=== PATIENT | female | born 1965 | race Caucasian/White ===

== ENCOUNTER 2018-12-06 16:34 | Emergency (ER) | payer OTHER ==
[2018-12-06] MEDS ORDERED: SODIUM CHLORIDE 0.9% 1,000 ML IV STA ×2 (16:54)
[2018-12-06 17:05] LABS: Basophils # (A) 0.1 k/uL (0-0.2); Basophils % (A) 1 %; Eosinophils # (A) 0.2 k/uL (0-0.7); Eosinophils % (A) 3 %; HCT 45.9 % (34.0-46.0); HGB 15.5 gm/dL (11.4-16.0); Lymphocytes # (A) 3.4 k/uL (1.0-4.8); Lymphocytes % (A) 38 %; MCH 31.7 pg (25.0-35.0); MCHC 33.7 g/dL (31.0-37.0); Mean Platelet Volume 7.9; Monocytes # (A) 0.5 k/uL (0-1.0); Monocytes % (A) 6 %; Neutrophils # (A) 4.3 k/uL (1.3-7.7); Neutrophils % (A) 49 %; Platelet Count 242 k/uL (150-450); RBC 4.88 m/uL (3.80-5.40); RDW 13.9 % (11.5-15.5); WBC 8.8 k/uL (3.8-10.6)
[2018-12-06 17:07] LABS: Glucose,Whole Blood 132 mg/dL (75-99)
[2018-12-06 17:09] LABS: ALT 28 U/L (9-52); AST 20 U/L (14-36); Albumin 4.1 g/dL (3.5-5.0); Alcohol <10 mg/dL; Alkaline Phosphatase 71 U/L (38-126); Amylase 36 U/L (30-110); Anion Gap 10 mmol/L; Blood Urea Nitrogen 13 mg/dL (7-17); Calcium 9.6 mg/dL (8.4-10.2); Carbon Dioxide 20 mmol/L (22-30); Chloride 108 mmol/L (98-107); Glucose 134 mg/dL (74-99); Lipase 68 U/L (23-300); Potassium 3.5 mmol/L (3.5-5.1); Sodium 138 mmol/L (137-145); Total Bilirubin 0.8 mg/dL (0.2-1.3); Total Protein 6.4 g/dL (6.3-8.2)
[2018-12-06 17:18] LABS: INR 0.9 (<1.2); Partial Thromboplastin Time 20.1 sec (22.0-30.0); Prothrombin Time 9.6 sec (9.0-12.0)
[2018-12-06 17:23] LABS: Creatine Kinase 150 U/L (30-135)
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
[2018-12-06] MEDS ORDERED: ONDANSETRON 4 MG/2 ML VIAL IVP STA (17:29)
[2018-12-06 17:35] LABS: Troponin I <0.012 ng/mL (0.000-0.034)
--- NOTE | 2018-12-06 17:46 | XR ---
EXAMINATION TYPE: XR chest 1V portable DATE OF EXAM: 12/06/2018 COMPARISON: NONE HISTORY: Left shoulder pain TECHNIQUE: Single frontal view of the chest is obtained. FINDINGS: Single view IMPRESSION: There is no heart failure nor confluent pneumonic infiltrate. Costophrenic angles are cl ear. Bony thorax appears intact. IMPRESSION: No active cardiopulmonary disease. Normal heart.
--- NOTE | 2018-12-06 17:48 | XR ---
EXAMINATION TYPE: XR pelvis AP view DATE OF EXAM: 12/06/2018 COMPARISON: NONE HISTORY: Shoulder pain TECHNIQUE: Single view FINDINGS: Pelvic ring is intact. Proximal femurs and hip joints are intact. There are phleboliths in the pelvis. Sacroiliac joints appear normal. IMPRESSION: Negative pelvis x-ray exam. No fracture.
--- NOTE | 2018-12-06 17:49 | XR ---
EXAMINATION TYPE: XR humerus LT DATE OF EXAM: 12/06/2018 COMPARISON: NONE HISTORY: Arm pain TECHNIQUE: 3 views FINDINGS: I see no fracture nor dislocation. Elbow joint and shoulder joint appear intact. IMPRESSION: Negative left humerus exam.
--- NOTE | 2018-12-06 17:50 | XR ---
EXAMINATION TYPE: XR shoulder limited LT DATE OF EXAM: 12/06/2018 COMPARISON: NONE HISTORY: Shoulder pain TECHNIQUE: Single view FINDINGS: I see no fracture nor dislocation. Glenohumeral joint appears anatomic. IMPRESSION: Negative left shoulder exam. Limited exam.
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
[2018-12-06 19:19] VITALS: BP 118/78; PULSE 71; RESP 18; TEMP 98.6
== END 2018-12-06 19:11 | disposition home or self-care (01) ==
LOC: EC 16:34
DX: S39.012A Strain of muscle, fascia and tendon of lower back, initial encounter (principal); S40.022A Contusion of left upper arm, initial encounter; R11.2 Nausea with vomiting, unspecified; R51 Headache; M25.552 Pain in left hip; E86.0 Dehydration; V43.53XA Car driver injured in collision with pick-up truck in traffic accident, initial encounter; Y92.410 Unspecified street and highway as the place of occurrence of the external cause
CPT/HCPCS: 36415; 86900; 86901; 80053; 82150; 82550; 82553; 83605; 83690; 84484; 85025; 85610; 85730; 86850; 80320; 72170; 73020; 73060; 71045; 72125; 70450; 71260; 74177; 99284; 96374; 96361 ×2; J2405; Q9967; 99285

== ENCOUNTER 2021-03-02 17:07 | Emergency (ER) | payer BC, OTHER ==
[2021-03-02] MEDS ORDERED: KETOROLAC 15 MG/ML 1 ML VIAL IVP STA (18:27)
[2021-03-02 18:45] LABS: Basophils # (A) 0.1 k/uL (0-0.2); Basophils % (A) 1 %; Eosinophils # (A) 0.2 k/uL (0-0.7); Eosinophils % (A) 3 %; HCT 45.5 % (34.0-46.0); HGB 14.8 gm/dL (11.4-16.0); Lymphocytes % (A) 24 %; MCH 30.2 pg (25.0-35.0); MCHC 32.5 g/dL (31.0-37.0); Mean Platelet Volume 8.5; Monocytes # (A) 0.3 k/uL (0-1.0); Monocytes % (A) 4 %; Neutrophils # (A) 5.6 k/uL (1.3-7.7); Neutrophils % (A) 67 %; Platelet Count 209 k/uL (150-450); RBC 4.89 m/uL (3.80-5.40); RDW 14.1 % (11.5-15.5); WBC 8.4 k/uL (3.8-10.6)
[2021-03-02 18:52] LABS: ALT 16 U/L (4-34); AST 23 U/L (14-36); African American GFR (CKD) >90 (>60 ml/min/1.73 sqM); Alkaline Phosphatase 72 U/L (38-126); Anion Gap 5 mmol/L; Blood Urea Nitrogen 13 mg/dL (7-17); Calcium 9.6 mg/dL (8.4-10.2); Carbon Dioxide 28 mmol/L (22-30); Chloride 109 mmol/L (98-107); Glucose 100 mg/dL (74-99); Non-African American GFR(CKD) >90 (>60 ml/min/1.73 sqM); Potassium 3.9 mmol/L (3.5-5.1); Sodium 142 mmol/L (137-145); Total Bilirubin 0.4 mg/dL (0.2-1.3); Total Protein 6.3 g/dL (6.3-8.2)
[2021-03-02 19:06] LABS: Appearance,Urine Turbid (Clear); Bacteria,Urine Rare /hpf; Bilirubin,Urine Negative (Negative); Blood,Urine Moderate (Negative); Color,Urine Yellow; Glucose,Urine (UA) Negative (Negative); Ketones,Urine Negative (Negative); Leukocyte Esterase,Urine Large (Negative); Mucus,Urine Occasional /hpf; Nitrite,Urine Negative (Negative); PH, Urine 5.5 (5.0-8.0); Protein,Urine 1+ (Negative); RBC,Urine 35 /hpf (0-5); Specific Gravity,Urine 1.023 (1.001-1.035); Squamous Epithelial Cell,Urine 1 /hpf (0-4); Urobilinogen,Urine <2.0 mg/dL (<2.0); WBC,Urine >182 /hpf (0-5)
--- NOTE | 2021-03-02 19:12 | ED ---
General Adult HPI - General Source: patient, RN notes reviewed Mode of arrival: ambulatory Limitations: no limitations <Gil Sheth - Last Filed: 03/02/21 19:15> <Liz Wells - Last Filed: 03/02/21 23:24> - General Chief complaint: Urogenital Stated complaint: Abd Pain Time Seen by Provider: 03/02/21 17:40 - History of Present Illness Initial comments: 55-year-old female presents to the emergency room for discharge. Patient reports she thought she was having bladder leakage over the past month but it has become a thick white foul-smelling discharge. Patient is not sure if she is having vaginal or urethral discharge. Patient has some minimal pelvic discomfort but denies any significant pain. Denies fevers or chills. Patient denies any sexual activity for the past 4 years. Patient has no other complaints at this time including shortness of breath, chest pain, abdominal pain, nausea or vomiting, headache, or visual changes. (Gil Sheth) - Related Data Home Medications Medication Instructions Recorded Confirmed Zantrex 2 cap PO BID 12/06/18 12/06/18 Previous Rx's Medication Instructions Recorded Cephalexin [Keflex] 500 mg PO Q6HR 10 Days #40 cap 03/02/21 metroNIDAZOLE [Flagyl] 500 mg PO BID #14 tab 03/02/21 Allergies Allergy/AdvReac Type Severity Reaction Status Date / Time No Known Allergies Allergy Verified 12/06/18 17:30 Review of Systems ROS Other: All systems not noted in ROS Statement are negative. <Gil Sheth - Last Filed: 03/02/21 19:15> ROS Other: All systems not noted in ROS Statement are negative. <Liz Wells - Last Filed: 03/02/21 23:24> ROS Statement: Those systems with pertinent positive or pertinent negative responses have been documented in the HPI. Past Medical History Past Medical History: No Reported History History of Any Multi-Drug Resistant Organisms: None Reported Past Surgical History: Section Past Psychological History: No Psychological Hx Reported Smoking Status: Current every day smoker Past Alcohol Use History: None Reported Past Drug Use History: None Reported <Gil Sheth - Last Filed: 03/02/21 19:15> General Exam Limitations: no limitations General appearance: alert, in no apparent distress Head exam: Present: atraumatic, normocephalic, normal inspection Eye exam: Present: normal appearance, PERRL, EOMI. Absent: scleral icterus, conjunctival injection, periorbital swelling ENT exam: Present: normal exam, mucous membranes moist Neck exam: Present: normal inspection, full ROM. Absent: tenderness, meningismus, lymphadenopathy Respiratory exam: Present: normal lung sounds bilaterally. Absent: respiratory distress, wheezes, rales, rhonchi, stridor Cardiovascular Exam: Present: regular rate, normal rhythm, normal heart sounds. Absent: systolic murmur, diastolic murmur, rubs, gallop, clicks GI/Abdominal exam: Present: soft, normal bowel sounds. Absent: distended, tenderness, guarding, rebound, rigid External exam: Present: normal external exam. Absent: erythema, swelling, lesions, lacerations, ecchymosis Speculum exam: Present: vaginal discharge, cervical discharge, other (Irregular appearing cervix). Absent: normal speculum exam, erythema, vaginal bleeding, foreign body, tissue, laceration <Gil Sheth - Last Filed: 03/02/21 19:15> Course Vital Signs 03/02/21 03/02/21 17:15 19:27 Temperature 97.7 F 99 F Pulse Rate 79 63 Respiratory 16 17 Rate Blood Pressure 153/79 150/68 O2 Sat by Pulse 97 98 Oximetry Medical Decision Making - Lab Data Result diagrams: 03/02/21 18:28 03/02/21 18:28 <Gil Sheth - Last Filed: 03/02/21 19:15> - Lab Data Result diagrams: 03/02/21 18:28 03/02/21 18:28 - Radiology Data Radiology results: report reviewed, image reviewed <Liz Wells - Last Filed: 03/02/21 23:24> - Medical Decision Making Vitals are stable. HPI and physical exam as documented. Pertinent for moderate amount of vaginal discharge which is cultured. Cervix does appear irregular. CBC CMP unremarkable. Urinalysis does have 182 white blood cells. This could be from the vaginal discharge and we will treat her with an antibiotic. (Gil Sheth) Care handed off to me by Gil Sheth PA-c. I did speak to the patient. Abdomen at time of my evaluation was soft and non-tender. She was resting comfortably in bed. I reviewed Labs and US results. US showed fluid in the endometrium measuring up to 6cm. I did discuss the case with julia Bales, discussed labs and US results. She will see patient in her office in the next 1- 2 weeks. Patient is discharged with prescription of keflex for UTI and Flagyl for possible bacterial vaginosis. She was also given dose of Rocephin and Azithromycin here in the ED. discuss follow-up plan with her she is agreeable. Return parameters were discussed in detail. She verbalizes understanding. Case is discussed in my attending Dr. Otoole. (Liz Wells) - Lab Data Lab Results 03/02/21 03/02/21 03/02/21 Range/Units 18:28 18:28 18:28 WBC 8.4 (3.8-10.6) k/uL RBC 4.89 (3.80-5.40) m/uL Hgb 14.8 (11.4-16.0) gm/dL Hct 45.5 (34.0-46.0) % MCV 93.0 (80.0-100.0) fL MCH 30.2 (25.0-35.0) pg MCHC 32.5 (31.0-37.0) g/dL RDW 14.1 (11.5-15.5) % Plt Count 209 (150-450) k/uL MPV 8.5 Neutrophils % 67 % Lymphocytes % 24 % Monocytes % 4 % Eosinophils % 3 % Basophils % 1 % Neutrophils # 5.6 (1.3-7.7) k/uL Lymphocytes # 2.0 (1.0-4.8) k/uL Monocytes # 0.3 (0-1.0) k/uL Eosinophils # 0.2 (0-0.7) k/uL Basophils # 0.1 (0-0.2) k/uL Sodium 142 (137-145) mmol/L Potassium 3.9 (3.5-5.1) mmol/L Chloride 109 H (98-107) mmol/L Carbon Dioxide 28 (22-30) mmol/L Anion Gap 5 mmol/L BUN 13 (7-17) mg/dL Creatinine 0.72 (0.52-1.04) mg/dL Est GFR (CKD-EPI)AfAm >90 (>60 ml/min/1.73 sqM) Est GFR (CKD-EPI)NonAf >90 (>60 ml/min/1.73 sqM) Glucose 100 H (74-99) mg/dL Calcium 9.6 (8.4-10.2) mg/dL Total Bilirubin 0.4 (0.2-1.3) mg/dL AST 23 (14-36) U/L ALT 16 (4-34) U/L Alkaline Phosphatase 72 (38-126) U/L Total Protein 6.3 (6.3-8.2) g/dL Albumin 4.0 (3.5-5.0) g/dL Urine Color Yellow Urine Appearance Turbid H (Clear) Urine pH 5.5 (5.0-8.0) Ur Specific [place] 1.023 (1.001-1.035) Urine Protein 1+ H (Negative) Urine Glucose (UA) Negative (Negative) Urine Ketones Negative (Negative) Urine Blood Moderate H (Negative) Urine Nitrite Negative (Negative) Urine Bilirubin Negative (Negative) Urine Urobilinogen <2.0 (<2.0) mg/dL Ur Leukocyte Esterase Large H (Negative) Urine RBC 35 H (0-5) /hpf Urine WBC >182 H (0-5) /hpf Urine WBC Clumps Few H (None) /hpf Ur Squamous Epith Cells 1 (0-4) /hpf Urine Bacteria Rare H (None) /hpf Urine Mucus Occasional H (None) /hpf Trichomonas Ag (Rapid) (Negative) 03/02/21 Range/Units 18:28 WBC (3.8-10.6) k/uL RBC (3.80-5.40) m/uL Hgb (11.4-16.0) gm/dL Hct (34.0-46.0) % MCV (80.0-100.0) fL MCH (25.0-35.0) pg MCHC (31.0-37.0) g/dL RDW (11.5-15.5) % Plt Count (150-450) k/uL MPV Neutrophils % % Lymphocytes % % Monocytes % % Eosinophils % % Basophils % % Neutrophils # (1.3-7.7) k/uL Lymphocytes # (1.0-4.8) k/uL Monocytes # (0-1.0) k/uL Eosinophils # (0-0.7) k/uL Basophils # (0-0.2) k/uL Sodium (137-145) mmol/L Potassium (3.5-5.1) mmol/L Chloride (98-107) mmol/L Carbon Dioxide (22-30) mmol/L Anion Gap mmol/L BUN (7-17) mg/dL Creatinine (0.52-1.04) mg/dL Est GFR (CKD-EPI)AfAm (>60 ml/min/1.73 sqM) Est GFR (CKD-EPI)NonAf (>60 ml/min/1.73 sqM) Glucose (74-99) mg/dL Calcium (8.4-10.2) mg/dL Total Bilirubin (0.2-1.3) mg/dL AST (14-36) U/L ALT (4-34) U/L Alkaline Phosphatase (38-126) U/L Total Protein (6.3-8.2) g/dL Albumin (3.5-5.0) g/dL Urine Color Urine Appearance (Clear) Urine pH (5.0-8.0) Ur Specific [place] (1.001-1.035) Urine Protein (Negative) Urine Glucose (UA) (Negative) Urine Ketones (Negative) Urine Blood (Negative) Urine Nitrite (Negative) Urine Bilirubin (Negative) Urine Urobilinogen (<2.0) mg/dL Ur Leukocyte Esterase (Negative) Urine RBC (0-5) /hpf Urine WBC (0-5) /hpf Urine WBC Clumps (None) /hpf Ur Squamous Epith Cells (0-4) /hpf Urine Bacteria (None) /hpf Urine Mucus (None) /hpf Trichomonas Ag (Rapid) Negative (Negative) - Radiology Data Ultrasound of the pelvis is obtained. Report is reviewed in its entirety. Impression by Dr. Romero shows moderate to marked endometrial fluid distention. Etiology is indeterminate. Recommend LABOR AND DELIVERY NURSE consultation follow-up imaging is indicated. Bilateral ovary is not visualized, may be atrophic. (Sofia Wells) Disposition Is patient prescribed a controlled substance at d/c from ED?: No Time of Disposition: 19:16 <Gil Sheth P - Last Filed: 03/02/21 19:15> Is patient prescribed a controlled substance at d/c from ED?: No Time of Disposition: 22:20 <Liz Wells - Last Filed: 03/02/21 23:24> Clinical Impression: Vaginal discharge, Pelvic pain, UTI (urinary tract infection) Disposition: HOME SELF-CARE Condition: Good Instructions (If sedation given, give patient instructions): Urinary Tract Infection in Women (ED), Pelvic Pain in Women (ED) Additional Instructions: Complete antibiotic prescription in full. Follow-up with gynecology in 1-2 weeks, Dr. Bales is expecting your phone call. Follow-up with the primary care physician for recheck in 1-2 days. Return for any new, worsening, or concer mikal symptoms. Prescriptions: metroNIDAZOLE [Flagyl] 500 mg PO BID #14 tab Cephalexin [Keflex] 500 mg PO Q6HR 10 Days #40 cap Referrals: None,Stated [Primary Care Provider] - 1-2 days Syl Bales DO [Doctor of Osteopathic Medicine] - 1-2 days
[2021-03-02] MEDS ORDERED: cefTRIAXone IN SWFI 1,000 MG/10 ML SYRINGE IVP STA (19:15)
[2021-03-02 19:28] VITALS: BP 150/68; PULSE 63; RESP 17; TEMP 99
[2021-03-02] MEDS ORDERED: AZITHROMYCIN 500 MG TAB PO STA (20:05)
[2021-03-02] MEDS ORDERED: metroNIDAZOLE 500 MG TAB PO STA (20:14)
--- NOTE | 2021-03-02 21:03 | US ---
EXAMINATION TYPE: US transvaginal DATE OF EXAM: 03/02/2021 COMPARISON: CT 2019. CLINICAL HISTORY: drainage, irregular looking cervix. Drainage, irregular looking cervix. Hx 3 C-Sect ions, tubal ligation, 1 miscarriage. . TECHNIQUE: Transvaginal (TV). Date of LMP: About 7 years ago. EXAM MEASUREMENTS: Uterus: 12.1 x 7.5 x 6.0 cm Endometrial Stripe: 0.77 cm Right Ovary: Not seen. Left Ovary: Not seen. 1. Uterus: Anteverted. Appears enlarged. Appears heterogeneous. 2. Endometrium: Anechoic versus slightly hypoechoic fluid appearing area within endometrium measuri ng 6.6 x 4.3 x 3.5 cm. 3. Right Ovary: Not seen. 4. Left Ovary: Not seen. 5. Bilateral Adnexa: Appear wnl. 6. Posterior cul-de-sac: Minimal fluid seen. IMPRESSION: Moderate to marked endometrial fluid distention. Etiology is indeterminate. Recommend W[facility]ANKET consultatio n and follow-up imaging as indicated. Bilateral ovaries not visualized, may be atrophic.
[2021-03-03 13:10] LABS: C. trachomatis,PCR Negative (Neg,Equiv); Chlamydia trachomatis Source Vagina; N. gonorrhoeae,PCR Negative (Neg,Equiv); Neisseria Source Vagina
== END 2021-03-02 22:43 | disposition home or self-care (01) ==
LOC: EC 17:07
DX: N39.0 Urinary tract infection, site not specified (principal); N89.8 Other specified noninflammatory disorders of vagina; F17.200 Nicotine dependence, unspecified, uncomplicated
CPT/HCPCS: 36415; 80053; 85025; 81001; 87808; 87491; 87591; 87070; 87086; 76830; 99284; 96374; 96375; J0696; J1885

== ENCOUNTER 2021-03-11 18:15 | Emergency (ER) | payer BC ==
[2021-03-11 18:30] VITALS: RESP 18
[2021-03-11] MEDS ORDERED: MORPHINE SULFATE 4 MG/ML SYRINGE IVP STA (19:37)
[2021-03-11 20:00] LABS: Basophils # (A) 0.1 k/uL (0-0.2); Basophils % (A) 1 %; Eosinophils # (A) 0.2 k/uL (0-0.7); Eosinophils % (A) 3 %; HCT 46.1 % (34.0-46.0); HGB 15.2 gm/dL (11.4-16.0); Lymphocytes # (A) 2.2 k/uL (1.0-4.8); Lymphocytes % (A) 25 %; MCH 31.1 pg (25.0-35.0); MCV 94.2 fL (80.0-100.0); Monocytes # (A) 0.3 k/uL (0-1.0); Monocytes % (A) 4 %; Neutrophils # (A) 5.8 k/uL (1.3-7.7); Neutrophils % (A) 67 %; Platelet Count 216 k/uL (150-450); RBC 4.89 m/uL (3.80-5.40); RDW 13.5 % (11.5-15.5); WBC 8.7 k/uL (3.8-10.6)
[2021-03-11 20:10] LABS: ALT 17 U/L (4-34); AST 25 U/L (14-36); African American GFR (CKD) >90 (>60 ml/min/1.73 sqM); Alkaline Phosphatase 68 U/L (38-126); Anion Gap 4 mmol/L; Blood Urea Nitrogen 11 mg/dL (7-17); Calcium 9.3 mg/dL (8.4-10.2); Carbon Dioxide 28 mmol/L (22-30); Chloride 109 mmol/L (98-107); Glucose 92 mg/dL (74-99); Non-African American GFR(CKD) >90 (>60 ml/min/1.73 sqM); Potassium 3.9 mmol/L (3.5-5.1); Sodium 141 mmol/L (137-145); Total Bilirubin 0.5 mg/dL (0.2-1.3); Total Protein 6.2 g/dL (6.3-8.2)
[2021-03-11 20:38] LABS: Appearance,Urine Turbid (Clear); Bacteria,Urine Moderate /hpf; Bilirubin,Urine Negative (Negative); Blood,Urine Large (Negative); Color,Urine Light Brown; Glucose,Urine (UA) Negative (Negative); Ketones,Urine Negative (Negative); Leukocyte Esterase,Urine Large (Negative); Mucus,Urine Occasional /hpf; Nitrite,Urine Negative (Negative); Protein,Urine 3+ (Negative); RBC,Urine >182 /hpf (0-5); Specific Gravity,Urine 1.021 (1.001-1.035); Squamous Epithelial Cell,Urine 6 /hpf (0-4); Urobilinogen,Urine <2.0 mg/dL (<2.0); WBC,Urine >182 /hpf (0-5)
[2021-03-11] MEDS ORDERED: SULFAMETH-TMP DS STARTER PACK 2 TAB BTL PO STA ×2 (22:02→22:03)
--- NOTE | 2021-03-11 22:04 | ED ---
General Adult HPI - General Source: patient Mode of arrival: wheelchair Limitations: no limitations <Gil Sheth - Last Filed: 03/12/21 00:25> <Viky Murillo - Last Filed: 03/17/21 23:41> - General Chief complaint: Abdominal Pain Stated complaint: Abdominal Pain Time Seen by Provider: 03/11/21 18:49 - History of Present Illness Initial comments: 55-year-old female presents to the emergency room for a chief complaint of abdominal pain. Patient reports this is an ongoing over a month. Patient states it is in her lower abdomen. Patient reports that she has had vaginal drainage as well. States it is thick and purulent in nature. She does have a foul order. Patient also had a couple days of vaginal bleeding last week which is abnormal for her. Patient denies fevers or chills. Patient has an appoi ntment with FITTING ROOM OPERATOR on March 25.Patient has no other complaints at this time including shortness of breath, chest pain, nausea or vomiting, headache, or visual changes. (Gil Sheth) - Related Data Home Medications Medication Instructions Recorded Confirmed Zantrex 2 cap PO BID 12/06/18 12/06/18 Previous Rx's Medication Instructions Recorded Cephalexin [Keflex] 500 mg PO Q6HR 10 Days #40 cap 03/02/21 metroNIDAZOLE [Flagyl] 500 mg PO BID #14 tab 03/02/21 Ketorolac [Toradol] 10 mg PO TID PRN #12 tab 03/11/21 Sulfamethox-Tmp 800-160Mg [Bactrim 1 tab PO Q12HR #20 tab 03/11/21 DS 800-160 mg] Allergies Allergy/AdvReac Type Severity Reaction Status Date / Time No Known Allergies Allergy Verified 03/11/21 18:30 Review of Systems ROS Other: All systems not noted in ROS Statement are negative. <Gil Sheth - Last Filed: 03/12/21 00:25> ROS Other: All systems not noted in ROS Statement are negative. <Viky Murillo - Last Filed: 03/17/21 23:41> ROS Statement: Those systems with pertinent positive or pertinent negative responses have been documented in the HPI. Past Medical History Past Medical History: No Reported History History of Any Multi-Drug Resistant Organisms: None Reported Past Surgical History: Section Past Psychological History: No Psychological Hx Reported Smoking Status: Current every day smoker Past Alcohol Use History: None Reported Past Drug Use History: None Reported <Gil Sheth - Last Filed: 03/12/21 00:25> General Exam Limitations: no limitations General appearance: alert, in no apparent distress Head exam: Present: atraumatic, normocephalic, normal inspection Eye exam: Present: normal appearance, PERRL, EOMI. Absent: scleral icterus, conjunctival injection, periorbital swelling ENT exam: Present: normal exam, mucous membranes moist Neck exam: Present: normal inspection, full ROM. Absent: tenderness, meningismus, lymphadenopathy Respiratory exam: Present: normal lung sounds bilaterally. Absent: respiratory distress, wheezes, rales, rhonchi, stridor Cardiovascular Exam: Present: regular rate, normal rhythm, normal heart sounds. Absent: systolic murmur, diastolic murmur, rubs, gallop, clicks GI/Abdominal exam: Present: soft, tenderness (Minimal abdominal tenderness without guarding or rebound.), normal bowel sounds. Absent: distended, guarding, rebound, rigid <Gil Sheth - Last Filed: 03/12/21 00:25> Course Vital Signs 03/11/21 03/11/21 18:28 22:40 Temperature 98.1 F 97.9 F Pulse Rate 77 59 L Respiratory 18 18 Rate Blood Pressure 138/70 137/83 O2 Sat by Pulse 97 98 Oximetry Medical Decision Making - Lab Data Result diagrams: 03/11/21 19:50 03/11/21 19:50 <Gil Sheth - Last Filed: 03/12/21 00:25> - Lab Data Result diagrams: 03/11/21 19:50 03/11/21 19:50 <Viky Murillo - Last Filed: 03/17/21 23:41> - Medical Decision Making I did perform pelvic exam on patient last week. She had irregular cervix with some friability. Purulent vaginal discharge. Chlamydia, gonorrhea, Trichomonas, genital culture were negative at that time. Patient was given Rocephin and azithromycin prior to negative gonorrhea and chlamydia results. Patient was given Flagyl for possible BV. Reports it when she was on did help but worsened again. Patient has also been taking Keflex for UTI. Ultrasound from that visit showed a distended fluid-filled uterus. Today laboratory evaluation is repeated. White blood cell count is normal. CMP unremarkable. Urinalysis continues to show infection. Unclear if this is from vaginal drainage. He received urine culture was negative. However we'll treat patient with Bactrim. Previously when patient was seen last week the case was discussed with Dr. Bales patient does have an upcoming appointment. I did state with Dr. Calvillo who is on-call for Dr. Bales. States she'll be in the office tomorrow and to have patient call to see if she can be seen. Patient is agreeable to this. She will return for any worsening symptoms or fevers. (Gil Sheth) I was available for consultation in the emergency department. The history and physical exam were done by the midlevel provider. I was consulted for this patients care. I reviewed the case with the midlevel provider and based on their presentation of the patient, I agree with the assessment, medical decision making and plan of care as documented. Chart was dictated using [employer] dictation software. Attempts were made to correct any dictation errors however some typographical errors may persist. (Viky Murillo) - Lab Data Lab Results 03/11/21 03/11/21 03/11/21 Range/Units 19:50 19:50 20:10 WBC 8.7 (3.8-10.6) k/uL RBC 4.89 (3.80-5.40) m/uL Hgb 15.2 (11.4-16.0) gm/dL Hct 46.1 H (34.0-46.0) % MCV 94.2 (80.0-100.0) fL MCH 31.1 (25.0-35.0) pg MCHC 33.0 (31.0-37.0) g/dL RDW 13.5 (11.5-15.5) % Plt Count 216 (150-450) k/uL MPV 9.0 Neutrophils % 67 % Lymphocytes % 25 % Monocytes % 4 % Eosinophils % 3 % Basophils % 1 % Neutrophils # 5.8 (1.3-7.7) k/uL Lymphocytes # 2.2 (1.0-4.8) k/uL Monocytes # 0.3 (0-1.0) k/uL Eosinophils # 0.2 (0-0.7) k/uL Basophils # 0.1 (0-0.2) k/uL Sodium 141 (137-145) mmol/L Potassium 3.9 (3.5-5.1) mmol/L Chloride 109 H (98-107) mmol/L Carbon Dioxide 28 (22-30) mmol/L Anion Gap 4 mmol/L BUN 11 (7-17) mg/dL Creatinine 0.74 (0.52-1.04) mg/dL Est GFR (CKD-EPI)AfAm >90 (>60 ml/min/1.73 sqM) Est GFR (CKD-EPI)NonAf >90 (>60 ml/min/1.73 sqM) Glucose 92 (74-99) mg/dL Calcium 9.3 (8.4-10.2) mg/dL Total Bilirubin 0.5 (0.2-1.3) mg/dL AST 25 (14-36) U/L ALT 17 (4-34) U/L Alkaline Phosphatase 68 (38-126) U/L Total Protein 6.2 L (6.3-8.2) g/dL Albumin 4.0 (3.5-5.0) g/dL Urine Color Light Brown Urine Appearance Turbid H (Clear) Urine pH 6.0 (5.0-8.0) Ur Specific [place] 1.021 (1.001-1.035) Urine Protein 3+ H (Negative) Urine Glucose (UA) Negative (Negative) Urine Ketones Negative (Negative) Urine Blood Large H (Negative) Urine Nitrite Negative (Negative) Urine Bilirubin Negative (Negative) Urine Urobilinogen <2.0 (<2.0) mg/dL Ur Leukocyte Esterase Large H (Negative) Urine RBC >182 H (0-5) /hpf Urine WBC >182 H (0-5) /hpf Urine WBC Clumps Many H (None) /hpf Ur Squamous Epith Cells 6 H (0-4) /hpf Urine Bacteria Moderate H (None) /hpf Urine Mucus Occasional H (None) /hpf Disposition Is patient prescribed a controlled substance at d/c from ED?: No Time of Disposition: 22:02 <Gil Sheth P - Last Filed: 03/12/21 00:25> <Viky Murillo A - Last Filed: 03/17/21 23:41> Clinical Impression: Vaginal discharge, Pelvic pain, UTI (urinary tract infection) Disposition: HOME SELF-CARE Condition: Good Instructions (If sedation given, give patient instructions): Acute Abdominal Pain (ED) Additional Instructions: Please take medication as directed. Please follow-up with FITTING ROOM OPERATOR. We did speak with Dr. Calvillo today who recommended calling Dr. Bales tomorrow to see if you could be seen as this is to who you were referred last week. If you have worsening symptoms return to the emergency room. Prescriptions: Sulfamethox-Tmp 800-160Mg [Bactrim DS 800-160 mg] 1 tab PO Q12HR #20 tab Ketorolac [Toradol] 10 mg PO TID PRN #12 tab PRN Reason: Pain Referrals: Syl Bales DO [Doctor of Osteopathic Medicine] - 1-2 days
[2021-03-11 22:56] VITALS: BP 137/83; PULSE 59; TEMP 97.9
== END 2021-03-11 22:40 | disposition home or self-care (01) ==
LOC: EC 18:15
DX: N39.0 Urinary tract infection, site not specified (principal); N89.8 Other specified noninflammatory disorders of vagina; F17.200 Nicotine dependence, unspecified, uncomplicated
CPT/HCPCS: 99284 ×2; 96374 ×2; 36415; 80053; 85025; 81001; 87086; J2270

== ENCOUNTER → 2021-04-30 | Outpatient (CLI) | payer BC ==
--- NOTE | 2021-05-03 07:38 | PE ---
EXAMINATION TYPE: PET CT fusion skull to thigh DATE OF EXAM: 04/30/2021 COMPARISON: Whole-body CT December 06, 2018 HISTORY: Patient has 2b Cervical cancer initial staging study on biopsy April 12, 2021 TECHNIQUE: Following the intravenous administration of 10.09 mCi of F-18 FDG, whole body images are performed from the skull base to the midthigh. Images are reviewed on the computer in the coronal, a xial, and sagittal planes. Reconstructed rotating images are created on independent workstation and reviewed on the computer. A localization and attenuation correction CT is performed in conjunction with the PET scan. Blood glucose level equals 109. SCAN: Initial Scan FINDINGS: SKULL BASE AND NECK: No areas of suspicious abnormal hypermetabolic uptake. CHEST, MEDIASTINUM, AND HILAR REGION: No areas of suspicious abnormal hypermetabolic uptake. ABDOMEN AND PELVIS: Anteverted uterus redemonstrated. New central hypodensity consistent with trapped endometrial fluid due to new enlarged hypermetabolic cervix or cervical mass beginning axial image 2 01 through 218 with peripheral and adjacent punctate calcifications or phleboliths, max SUV is 12.58. Abnormal enlarged left iliac hypermetabolic lymph node axial image 201 measuring 1.9 x 1.9 cm, max GARCIA V is 4.72. There are 2-3 hypermetabolic right external iliac chain lymph nodes including dominant 2.4 x 2.1 cm l ymph node axial image 197, max SUV is 5.6. Superior to this there is hypermetabolic uptake along the course of the right ureter. Possible additional hypermetabolic lymph nodes. There is however more sup erior abnormal 1.2 x 0.9 cm left iliac chain lymph node at bifurcation adjacent to left psoas muscle, max SUV is 4.43 on axial image 175. There is abnormal hypermetabolic 1.1 x 0.9 cm left periaortic lymph node axial image 157, max SUV is 3.75. OSSEOUS STRUCTURES: No abnormal hypermetabolic osseous uptake. OTHER CT: Mild to moderate three-vessel coronary artery calcification. Small sized hiatal hernia. Mul tilevel spurring in the spine. Mild calcified plaque distal abdominal aorta. IMPRESSION: Cervical neoplasm identified. There is abnormal pelvic iliac chain adenopathy bilaterally . Additional abnormal retroperitoneal adenopathy extends up to mid to lower abdominal level. No metas tatic disease in the neck or thorax identified.
== END | disposition home or self-care (01) ==
LOC: RADPETMAIN 14:59
PROVIDERS: ATTEND Obstetrics & Gynecology
DX: C53.8 Malignant neoplasm of overlapping sites of cervix uteri (principal); R59.9 Enlarged lymph nodes, unspecified
CPT/HCPCS: 78815; A9552

== ENCOUNTER → 2021-06-17 | Outpatient (CLI) | payer BC ==
--- NOTE | 2021-06-17 14:05 | MR ---
EXAMINATION TYPE: MR pelvis wo/w con DATE OF EXAM: 06/17/2021 COMPARISON: PET/CT 04/30/2021 HISTORY: Malignant neoplasm of endocervix CONTRAST: Standard multiplanar, multisequence MRI departmental protocol images were obtained without contrast a nd with 10 mL intravenous Gadavist gadolinium contrast. FINDINGS: There is masslike area of enhancement near the internal cervical os measuring 1.8 x 1.7 cm with surro unding enhancement. There is focal decreased signal noted which could reflect recent biopsy site. Cor relate clinically. Previously noted endometrial distention and fluid has resolved in the interval. Th e endometrium now measures 2 mm. The uterus is anteverted and measures 8 cm in length. There are mult iple lesions of decreased signal within the uterine myometrium measuring up to 1.6 cm felt to reflect myometrial leiomyomas. The ovaries are symmetric and free of mass lesion. No adnexal masses are present. There is right internal iliac chain adenopathy measuring 1.6 cm. External iliac chain adenopathy in t he right measures 1.3 cm. Left internal iliac chain lymph node measures 1.6 cm. With an additional 1 cm lesion. No free fluid evident. Osseous structures are unremarkable. Urinary bladder is within normal limits. Visualized gastrointestinal tract is within normal limits. IMPRESSION: 1. Enhancing mass near the region of the internal cervical os with surrounding enhancement. Focal dec reased signal may reflect recent biopsy site. Correlate with surgical history. 2. Improvement in previous endometrial distention. 3. Pelvic adenopathy as noted above. 4. Uterine leiomyomas.
== END | disposition home or self-care (01) ==
LOC: RADMRIMAIN 12:08
PROVIDERS: ATTEND Radiology Radiation Oncology
DX: C53.0 Malignant neoplasm of endocervix (principal); D25.9 Leiomyoma of uterus, unspecified; F17.210 Nicotine dependence, cigarettes, uncomplicated
CPT/HCPCS: 72197; A9585

== ENCOUNTER → 2021-09-24 | Outpatient (CLI) | payer BC ==
--- NOTE | 2021-09-29 13:11 | PE ---
Nuclear medicine PET/CT HISTORY: Cervical carcinoma, subsequent Patient received 10.7 mCi F-18 FDG intravenously in delayed scanning was performed from the skull bas e to the mid thighs. A localization and attenuation correction CT scan was performed. Correlation to prior nuclear medicine PET/CT 04/30/2021 Chest and neck: There is no cervical or supraclavicular adenopathy. No mediastinal, axillary or hilar adenopathy. Cor onary artery calcifications are present. There is no evident lung mass, no pleural pericardial effusi on. No suspicious hypermetabolic uptake. ABDOMEN: There is no pneumoperitoneum or retroperitoneal adenopathy. No suspicious uptake. The aorta shows atheromatous change. There is no liver mass. Kidneys show no hydronephrosis. Adrenal glands and pancreas, spleen are within normal limits. No bowel obstruction is seen. Small umbilical hernia cont ains fat. Uterus shows somewhat heterogeneous appearance, there is improvement in the thickening of t he endometrium. Urinary bladder is unremarkable. No pelvic adenopathy or free fluid. The previously i dentified iliac chain adenopathy is improved compared to prior Osseous structures are within normal limits, no suspicious uptake. IMPRESSION: No suspicious uptake is evident. The prominence of the endometrium and pelvic adenopathy is improved compared to prior exam
== END | disposition home or self-care (01) ==
LOC: RADPETMAIN 07:20
PROVIDERS: ATTEND Radiology Radiation Oncology
DX: C53.0 Malignant neoplasm of endocervix (principal)
CPT/HCPCS: 78815; A9552

== ENCOUNTER → 2022-01-05 | Outpatient (CLI) | payer BC ==
--- NOTE | 2022-01-05 14:04 | CT ---
EXAMINATION TYPE: CT abdomen pelvis wo/w con DATE OF EXAM: 01/05/2022 HISTORY: Malignant neoplasm endocervix CT DLP: 3518.7mGycm Automated Exposure Control for Dose Reduction was Utilized. CONTRAST: CT scan of the abdomen and pelvis is performed with oral and without and with IV Contrast, patient in jected with 100 mL of Isovue 300. COMPARISON: Most recent PET CT September 24, 2021 and older studies FINDINGS: LUNG BASES: No significant abnormality is appreciated. LIVER/GB: No significant abnormality is appreciated. PANCREAS: No significant abnormality is seen. SPLEEN: No significant abnormality is seen. ADRENALS: No significant abnormality is seen. KIDNEYS: There is 1 to 2 mm calculus lower pole left kidney series 3 image 37 redemonstrated. There i s symmetric uptake and excretion without hydronephrosis seen bilaterally. BOWEL: Oral contrast reaches level of the cecum. No suspicious small or large bowel dilatation. Redun dant sigmoid colon is seen. UTERUS/ADNEXA: Anteverted uterus with prominent central hypodense endometrium redemonstrated. Trace f ree fluid in the pelvis axial image 66 redemonstrated. Scattered inferior pelvic phleboliths bilatera lly are redemonstrated. Cervix remains stable and less prominent in size from older PET/CT April 30, 2021. No significant change. Most recent PET/CT. Persistent mild nonspecific ill-defined fluid an d fat stranding in the presacral space correlates with most recent PET/CT suspected posttreatment maria antonia nge as is ametabolic LYMPH NODES: No recurrent or new greater than 1cm abdominal or pelvic lymph nodes are appreciated wit h particular attention to the iliac vessels as site of prior abnormal adenopathy. OSSEOUS STRUCTURES: Mild to moderate disc space narrowing L3-L4 and L4-L5 levels. OTHER: No significant additional abnormality is seen. IMPRESSION: No convincing evidence of new or enlarging mass or adenopathy to suggest active neoplasti c recurrence. No significant change from most recent PET/CT
== END | disposition home or self-care (01) ==
LOC: RADCTMAIN 08:01
PROVIDERS: ATTEND Radiology Radiation Oncology
DX: C53.0 Malignant neoplasm of endocervix (principal)
CPT/HCPCS: 82565; 84520; 74178; 36415; Q9967

== ENCOUNTER → 2022-09-16 | Outpatient (CLI) | payer BC ==
--- NOTE | 2022-09-16 13:14 | PE ---
EXAMINATION TYPE: PET CT fusion skull to thigh DATE OF EXAM: 09/16/2022 COMPARISON: Prior PET CTs September 24, 2021 and older study April 30, 2021 HISTORY: Cervical cancer progress study. TECHNIQUE: Following the intravenous administration of 11.52mCi of F-18 FDG, whole body images are p erformed from the skull base to the midthigh. Images are reviewed on the computer in the coronal, ax ial, and sagittal planes. Reconstructed rotating images are created on independent workstation and r eviewed on the computer. A localization and attenuation correction CT is performed in conjunction w ith the PET scan. Blood glucose level was 121. SCAN: Subsequent Scan FINDINGS: SKULL BASE AND NECK: No new areas of suspicious abnormal hypermetabolic uptake. CHEST, MEDIASTINUM, AND HILAR REGION: No new areas of suspicious abnormal hypermetabolic uptake. ABDOMEN AND PELVIS: Anteverted uterus redemonstrated. Normal excretion again seen. No definitive new areas of abnormal hypermetabolic uptake in the lower uterine segment extending to the cervix. No recu rrent or new pelvic hypermetabolic adenopathy is seen on current study. Scattered pelvic phlebolith a re redemonstrated. No new retroperitoneal adenopathy. No new areas of abnormal hypermetabolic uptake. OSSEOUS STRUCTURES: No new areas of abnormal hypermetabolic osseous uptake. OTHER CT: Mild to moderate three-vessel coronary artery calcification. Small sized hiatal hernia. Mul tilevel spurring in the spine. Mild calcified plaque distal abdominal aorta. IMPRESSION: Complete positive treatment response remains present. No new abnormal hypermetabolic upta ke to suggest local active or metastatic neoplastic recurrence.
== END | disposition home or self-care (01) ==
LOC: RADPETMAIN 09:27
PROVIDERS: ATTEND Internal Medicine Hematology & Oncology
DX: C53.9 Malignant neoplasm of cervix uteri, unspecified (principal)
CPT/HCPCS: 78815; A9552